=== PATIENT | female | born 1990 | race Caucasian/White ===

== ENCOUNTER 2016-12-29 22:20 | Emergency (ER) | payer OTHER ==
[2016-12-29] MEDS ORDERED: DIAZEPAM 5 MG TABLET ONE (22:59)
== END 2016-12-29 23:14 | disposition home or self-care (01) ==
LOC: ED 22:20
DX: F41.9 Anxiety disorder, unspecified (principal); F41.0 Panic disorder [episodic paroxysmal anxiety]; F17.210 Nicotine dependence, cigarettes, uncomplicated
CPT/HCPCS: 99282; 99283; A9270